=== PATIENT | female | born 1980 | race Caucasian/White ===

== ENCOUNTER 2024-08-18 18:20 | Emergency (ER) | payer OTHER, SELFPAY ==
--- NOTE | ~2024-08-18 | XR_ITS ---
EXAMINATION: XR chest 1V portable Exam Date/Time: 08/18/2024 21:00 POLITICAL AIDE HISTORY: left chest pain Comparison: None. RESULT: Lines, tubes, and devices: None. Lungs and pleura: Segmental airspace disease in the left lower lung. Cardiomediastinal silhouette: Normal. Other: No acute osseous or upper abdominal finding. IMPRESSION: Segmental airspace disease in the left lower lung concerning for pneumonia. Reviewed, dictated and finalized at location K. TICAL AIDE
--- NOTE | 2024-08-18 18:25 | ECG_ITS ---
Test Date: 2024-08-18 18:37:16 Measurements Intervals [place] Rate: 78 P: 62 RI: 141 QRS: 57 QRSD: 110 T: 53 QT: 382 QTc: 436 Interpretive Statements SINUS RHYTHM CANNOT RULE OUT ANTEROSEPTAL MYOCARDIAL INFARCTION ABNORMAL ECG No previous ECG available for comparison Electronically Signed On 08-19-2024 10:41:24 ADVERTISING PHOTOGRAPHER by Maurizio Mercer M.D.
[2024-08-18 21:27] LABS: BEDSIDEPREGUCG Negative (Negative)
[2024-08-18] MEDS: KETOROLAC 15 MG/ML VIAL (*BKC) IV PUSH (21:28)
[2024-08-18 21:38] LABS: Basophils Absolute Auto 0.1 K/mm3 (0.0-0.1); Basophils Percent Auto 0.4 % (0.2-1.2); Eosinophils Absolute Auto 0.2 K/mm3 (0-0.3); Eosinophils Percent Auto 1.3 % (0-4.4); Hemoglobin 13.8 g/dL (12.0-15.0); Immature Granulocyte Absolute 0.05 K/mm3 (0.00-0.031); Immature Granulocyte Percent A 0.3 % (0-0.5); Lymphocytes Absolute Auto 4.99 K/mm3 (0.9-3.2); Lymphocytes Percent Auto 31.5 % (18.3-44.2); Mean Corpuscular HGB Conc 33.7 g/dl (32-36); Mean Corpuscular Hemoglobin 31.1 pg (26-34); Mean Corpuscular Volume 92.3 fl (80-100); Monocytes Percent Auto 6.6 % (2.6-8.5); Neutrophils Absolute Auto 9.5 K/mm3 (1.3-6.7); Neutrophils Percent Auto 59.9 % (45.5-73.1); Platelet Count Result 282 k/mm3 (150-375); Red Blood Count 4.44 M/mm3 (4.2-5.4); White Blood Count 15.8 K/mm3 (4.5-10.0)
[2024-08-18 21:54] LABS: Alanine Aminotransferase 23 U/L (6-35); Albumin Level 4.7 g/dL (3.5-5.1); Alkaline Phosphatase 81 U/L (38-126); Anion Gap 8 mmol/L (4-12); Aspartate Amino Transferase 25 U/L (14-36); Bilirubin,Total 0.7 mg/dL (0.2-1.3); Blood Urea Nitrogen 10 mg/dL (7-17); Calcium 9.4 mg/dL (8.4-10.2); Carbon Dioxide 28 mmol/L (22-30); Chloride 102 mmol/L (98-107); Estimated CRCL calculation 89 ml/min; Estimated Glomerular Filt Rate > 60; Glucose 88 mg/dL (65-110); INR 0.9; Lipase 46 U/L (23-300); Potassium 3.3 mmol/L (3.4-5.0); Sodium 138 mmol/L (137-145)
[2024-08-18 21:55] LABS: Partial Thromboplastin Time 27.7 Seconds (22.3-36.8)
[2024-08-18 22:02] LABS: D Dimer < 0.27 ug/mL (<0.48)
[2024-08-18 22:06] LABS: NT Pro B Type Natriuretic Pept 35 pg/mL (19.9-100); Troponin I < 0.012 ng/mL (0.000-0.034)
--- NOTE | 2024-08-18 22:21 | ED.EXTPRO ---
HPI - Extremity Problem General Chief complaint: Extremity Problem,Nontraumatic Stated complaint: Sudden onset left shoulder pain Time Seen by Provider: 08/18/24 20:30 History of Present Illness HPI Narrative: 43-year-old female with complex history including previous methamphetamine abuse, history of DVT 20 years ago that was supposedly provoked and she is no longer any kind of blood thinners. Today she presents with left-sided chest pain and shoulder pain. She states she is not sure if he is just anxious but does endorse severe mental illness. She states she is recovering from methamphetamine use and has been clean for several months. Denies any injections, trauma or injuries. No recent illnesses. She states she has no history of any cardiac issues but states that she has been feeling she might have a pneumonia over last several weeks. Endorses URI type symptoms. Was otherwise in her normal state of health. Does not have a PCP that she can follow-up at this time. Related Data Allergies Allergy/AdvReac Type Severity Reaction Status Date / Time No Known Allergies Allergy Verified 08/18/24 18:21 Review of Systems Review of Systems: As reviewed above in HPI Exam Narrative: GENERAL: [Well-appearing, well-nourished, and in no acute distress.] HEAD: [Normocephalic, atraumatic.] EYES: [PERRLA and EOMI.] ENT: Nares clear, no rhinorrhea or epistaxis. Mucous membranes moist. NECK: Supple. CHEST: [Clear to auscultation. No respiratory distress.] HEART: [Regular rate and rhythm]. No murmur heard. [Normal peripheral pulses.] ABDOMEN: [Soft, nondistended], [nontender], [No rigidity or guarding] EXTREMITIES: Normal range of motion. [No edema.] SKIN: Warm, dry, no rash. NEURO: [No focal deficits]. Alert and oriented [x3.] PSYCH: [Normal mood and affect.] MDM - Extremity (Nontraumatic) MDM Narrative Medical decision making narrative: 43-year-old female with history of previous methamphetamine abuse currently in remission and previous provoked DVT currently not going through any kind of blood thinner anticoagulation therapy. Patient otherwise appears very well not any acute distress, she has clear breath sounds throughout both lung simpson, strong symmetric pulses in all 4 limbs, warm extremities. No evidence of injury or any tenderness with palpation. She does have URI type symptoms and concerns that she might have a pneumonia as she has been experiencing symptoms for last several weeks. No evidence of a DVT here today but given her history of amphetamine use and DVT we did a cardiac workup including CBC, CMP, chest x-ray, EKG, troponin and D-dimer. Patient was provided Toradol with analgesia Workup shows a leukocytosis of 15.8, normal hemoglobin, normal platelet level. Electrolytes largely unremarkable aside from some very minor hypokalemia. Normal renal and hepatic function panel, normal glucose. Negative D-dimer, negative troponin. Negative lipase. Negative test. Chest x-ray was independent reviewed and does show some airspace disease in left lower lung consistent with pneumonia. Patient's EKG was nonischemic with normal sinus rhythm but no previous EKG for comparison. Given patient's duration of symptoms and risk factors we did do dual coverage antibiosis including Augmentin and azithromycin. She will be sent home with a short course of both of these medications and distant to [facility] for persistent cough. Patient was also provided a PCP she can establish care with. Patient's questions were answered, pain has resolved and she is stable for discharge at this time. Lab Data 08/18/24 21:24 08/18/24 21:24 Labs: Lab Results 08/18/24 08/18/24 Range/Units 21:24 21:25 WBC 15.8 H (4.5-10.0) K/mm3 RBC 4.44 (4.2-5.4) M/mm3 Hgb 13.8 (12.0-15.0) g/dL Hct 41.0 (37.0-47.0) % MCV 92.3 (80-100) fl MCH 31.1 (26-34) pg MCHC 33.7 (32-36) g/dl RDW 13.0 (11.5-14.5) % Plt Count 282 (150-375) k/mm3 MPV 10.0 (7.4-10.4) fl Immature Gran % (Auto) 0.3 (0-0.5) % Neut % (Auto) 59.9 (45.5-73.1) % Lymph % (Auto) 31.5 (18.3-44.2) % Mower % (Auto) 6.6 (2.6-8.5) % Eos % (Auto) 1.3 (0-4.4) % Baso % (Auto) 0.4 (0.2-1.2) % Lymph # (Auto) 4.99 H (0.9-3.2) K/mm3 Mower # (Auto) 1.0 H (0.1-0.6) K/mm3 Eos # (Auto) 0.2 (0-0.3) K/mm3 Baso # (Auto) 0.1 (0.0-0.1) K/mm3 Abs Immat Gran (auto) 0.05 H (0.00-0.031) K/mm3 Absolute Neuts (auto) 9.5 H (1.3-6.7) K/mm3 Absolute Nucleated RBC 0.000 (0.0-0.012) K/mm3 Nucleated RBC % 0.0 (0.0-0.2) % PT 12.0 (11.1-14.7) Seconds INR 0.9 APTT 27.7 (22.3-36.8) Seconds D-Dimer < 0.27 (<0.48) ug/mL Sodium 138 (137-145) mmol/L Potassium 3.3 L (3.4-5.0) mmol/L Chloride 102 (98-107) mmol/L Carbon Dioxide 28 (22-30) mmol/L Anion Gap 8 (4-12) mmol/L BUN 10 (7-17) mg/dL Creatinine 0.67 L (0.7-1.0) mg/dL Estim Creat Clear Calc 89 ml/min Estimated GFR > 60 (59 - ) Glucose 88 (65-110) mg/dL Calcium 9.4 (8.4-10.2) mg/dL Total Bilirubin 0.7 (0.2-1.3) mg/dL AST 25 (14-36) U/L ALT 23 (6-35) U/L Alkaline Phosphatase 81 (38-126) U/L Troponin I < 0.012 (0.000-0.034) ng/mL NT-Pro-B Natriuret Pep 35 (19.9-100) pg/mL Total Protein 8.0 (6.3-8.2) g/dL Albumin 4.7 (3.5-5.1) g/dL Lipase 46 (23-300) U/L POC Urine HCG, Qual Negative (Negative) Discharge Plan Discharge Clinical Impression: Community acquired pneumonia Patient Disposition: Home, Self-Care Condition: Stable Instructions: Antibiotic Form, Bacterial Pneumonia (DC) Additional Instructions: You do have a pneumonia in your left lung which will be treated with 2 different oral antibiotics. We have also given you a PCP that he can stab was care and follow-up appointments with in addition to medications for symptom control that we sent to her pharmacy. Return with any new or worsening concerns at any time. Otherwise follow-up safely with your regular doctor. Patient Language: Amharic Prescriptions: New amoxicillin-pot clavulanate 875-125 mg tablet 1 tablet PO Q12H 7 Days Qty: 14 0RF azithromycin [Zithromax Z-Mario] 250 mg tablet See Rx Instructions .ROUTE .COMPLEX Qty: 6 0RF Rx Instructions: For 250 mg dose pack: take 500 mg today (day 1), then 250 mg for 4 days (days 2-5) Tussin Cough (DM only) 15 mg/5 mL liquid 15 mg PO ONCE Qty: 118 0RF Follow-up/Referrals: Nerissa Mathews MD [Physician] - 3 Days (Establish PCP) PHYSICIAN,COMMUNITY PLANNING TECHNICIAN [Primary Care Provider] - Time of Disposition: 22:33
[2024-08-18] MEDS: AMOXICILLIN/CLAVULANATE K 875-125 MG TAB 1 TABLET PO (22:42)
[2024-08-18] MEDS: AZITHROMYCIN 250 MG TABLET 500 MG PO (22:42)
[2024-08-18 22:54] VITALS: BP 103/62; PULSE 81; RESP 20; TEMP 37.2; O2SAT 100
== END 2024-08-18 22:55 | disposition home or self-care (01) ==
PROVIDERS: Emergency Medicine; Emergency Provider Student in an Organized Health Care Education/Training Program
DX: J18.9 Pneumonia, unspecified organism (principal); F99 Mental disorder, not otherwise specified; Z86.718 Personal history of other venous thrombosis and embolism
CPT/HCPCS: 36415; 71045; 80053; 81025; 83690; 83880; 84484; 85025; 85380; 85610; 85730; 93005; 96374; 99284; A9270; J1885